=== PATIENT | male | born 1965 | race African-American/Black ===

== ENCOUNTER 2016-09-07 19:51 | Emergency (ER) | payer MEDICAID ==
[~2016-09-07] VITALS: Ht 172.7 cm; Wt 82.0 kg
[~2016-09-07 19:51] MED LIST: METO50TA PO
[2016-09-07 19:53] VITALS: BP 204/112; PULSE 107; RESP 18; TEMP 98.3; O2SAT 97
--- NOTE | 2016-09-07 20:44 | PD ---
HPI Chief Complaint: Abdominal Pain Time Seen by Provider: 20:23 Travel History International Travel<30 days: No Contact w/Intl Traveler<30days: No Traveled to known affect area: No History of Present Illness HPI 51-year-old man who presents to the emergency department complaining of right groin pain. States that this started 3 days ago. He states when his young he notices a small nodule in his groin its been there ever since. He's never really had trouble with it. States over the past 3 days has gotten very painful for him. He is worsening pain whenever he tries to move his leg or stand or walk. He has not noticed anything else that exacerbates the pain. He denies any injuries heavy lifting or new activities. He otherwise has been feeling generally well and healthy. History Past Medical History Narrative Medical Hypertension Social History Alcohol Use: Yes (occasional ) Tobacco Use: No Allergies-Medications (Allergen,Severity, Reaction): Coded Allergies: BLANCA Inhibitors (Verified Allergy, Severe, 09/07/16) Reported Meds & Prescriptions Reported Meds & Active Scripts Active Metoprolol Tartrate 50 Mg Tab 50 Mg PO BID Review of Systems Except as stated in HPI: all other systems reviewed are Neg Physical Exam Narrative GENERAL: Well-appearing 51-year-old man, no acute distress. SKIN: Warm and dry. CARDIOVASCULAR: Regular rate and rhythm. No murmur appreciated. RESPIRATORY: No accessory muscle use. Clear to auscultation. Breath sounds equal bilaterally. GASTROINTESTINAL: Abdomen soft, non-tender, nondistended. Hepatic and splenic margins not palpable. : Normal external male genitalia. There is no palpable hernias. There is no testicular tenderness or masses. In the area that the patient identifies as being tender, its more on the very proximal medial thigh, there is no palpable lumps bumps or swellings. MUSCULOSKELETAL: No obvious deformities. Data Data Last Documented VS Vital Signs Date Time Temp Pulse Resp B/P Pulse Ox O2 Delivery O2 Flow Rate FiO2 09/07/16 21:05 90 17 162/106 97 Room Air 09/07/16 19:53 98.3 Orders Complete Blood Count With Diff (09/07/16 20:23) Basic Metabolic Panel (Bmp) (09/07/16 20:23) Urinalysis - C+S If Indicated (09/07/16 20:23) Iv Access Insert/Monitor (09/07/16 20:23) Ct Abd/Pel W Iv Contrast(Rout) (09/07/16 ) Hepatic Functional Panel (09/07/16 22:41) Iohexol 350 Inj (Omnipaque 350 Inj) (09/08/16 00:26) Sodium Chlor 0.9% 1000 Ml Inj (Ns 1000 M (09/08/16 01:00) Sodium Chlor 0.9% 1000 Ml Inj (Ns 1000 M (09/08/16 01:00) Labs Laboratory Tests Test 09/07/16 09/07/16 09/07/16 20:36 21:50 22:45 White Blood Count 9.1 TH/MM3 Red Blood Count 4.58 MIL/MM3 Hemoglobin 14.0 GM/DL Hematocrit 41.4 % Mean Corpuscular Volume 90.3 FL Mean Corpuscular Hemoglobin 30.6 PG Mean Corpuscular Hemoglobin 33.9 % Concent Red Cell Distribution Width 13.9 % Platelet Count 270 TH/MM3 Mean Platelet Volume 10.4 FL Neutrophils (%) (Auto) 62.2 % Lymphocytes (%) (Auto) 22.1 % Monocytes (%) (Auto) 12.6 % Eosinophils (%) (Auto) 2.2 % Basophils (%) (Auto) 0.9 % Neutrophils # (Auto) 5.7 TH/MM3 Lymphocytes # (Auto) 2.0 TH/MM3 Monocytes # (Auto) 1.2 TH/MM3 Eosinophils # (Auto) 0.2 TH/MM3 Basophils # (Auto) 0.1 TH/MM3 CBC Comment DIFF FINAL Differential Comment Urine Color DARK-YELLOW Urine Turbidity HAZY Urine pH 6.0 Urine Specific [place] 1.026 Urine Protein 100 mg/dL Urine Glucose (UA) NEG mg/dL Urine Ketones 40 mg/dL Urine Occult Blood NEG Urine Nitrite NEG Urine Bilirubin NEG Urine Urobilinogen 4.0 MG/DL Urine Leukocyte Esterase NEG Urine RBC 2 /hpf Urine WBC 4 /hpf Urine Squamous Epithelial 1 /hpf Cells Urine Mucus FEW /lpf Microscopic Urinalysis Comment CULT NOT INDICATED Sodium Level 139 MEQ/L Potassium Level 3.7 MEQ/L Chloride Level 102 MEQ/L Carbon Dioxide Level 28.8 MEQ/L Anion Gap 8 MEQ/L Blood Urea Nitrogen 16 MG/DL Creatinine 1.77 MG/DL Estimat Glomerular Filtration 49 ML/MIN Rate Random Glucose 113 MG/DL Calcium Level 8.9 MG/DL Total Bilirubin 1.7 MG/DL Direct Bilirubin 0.4 MG/DL Indirect Bilirubin 1.3 MG/DL Aspartate Amino Transf 17 U/L (AST/SGOT) Alanine Aminotransferase 24 U/L (ALT/SGPT) Alkaline Phosphatase 61 U/L Total Protein 7.8 GM/DL Albumin 3.9 GM/DL [facility] Medical Decision Making Medical Screen Exam Complete: Yes Emergency Medical Condition: Yes Interpretation(s) LABS: CBC unremarkable. CMP with mildly elevated creatinine, mildly elevated total bilirubin. UA unremarkable. CT abdomen and pelvis: Urinary bladder wall thickening, nonspecific. Degenerative changes in the lumbar spine. Differential Diagnosis Hernia, groin strain, kidney stone, UTI, other Narrative Course Medical decision making INITIAL: A 51-year-old man who presents to the emergency department complaining of groin strain and pain. He says he can feel a lump or bump in his groin. This was suggest a hernia. I can't appreciate any hernia even with examining him was standing. He does state coughing exacerbates the pain but still I can' t feel anything abnormal. He has pain when he flexes his thigh and when he abducts his thigh against resistance. I think that he probably has a groin muscle strain. We'll check labs, and imaging to make sure not missing something unusual like an incarcerated femoral hernia. Otherwise will discharge with anti-inflammatory medicines. Diagnosis Primary Impression: Groin strain Qualified Code: S76.211A - Groin strain, right, initial encounter Additional Instructions: Use Tylenol or ibuprofen as needed for pain. Follow Up with your primary doctor in the next 2-3 days. Return to the emergency department for any new or worsening symptoms. Med/Other Pt SpecificInfo: Prescription(s) given Disposition: 01 DISCHARGE HOME Condition: Stable Cresencio Goff MD Sep 07, 2016 20:44
[2016-09-07 21:05] VITALS: BP 162/106; PULSE 90; RESP 17; O2SAT 97
[2016-09-07 21:18] LABS: AUTOMATED NEUTROPHIL # 5.7 TH/MM3 (1.8-7.7); BASOPHIL # 0.1 TH/MM3 (0-0.2); BASOPHIL % 0.9 % (0.0-2.0); EOSINOPHIL # 0.2 TH/MM3 (0-0.4); EOSINOPHIL % 2.2 % (0.0-4.0); HEMATOCRIT 41.4 % (39.0-51.0); HEMO FLAGS DIFF FINAL; LYMPH % 22.1 % (9.0-44.0); MEAN CELL VOLUME 90.3 FL (80.0-100.0); MEAN CORPUSCULAR HEMOGLOBIN 30.6 PG (27.0-34.0); MEAN CORPUSCULAR HGB CONC 33.9 % (32.0-36.0); MONO % 12.6 % (0.0-8.0); NEUT % 62.2 % (16.0-70.0); PLATELET COUNT 270 TH/MM3 (150-450); RED BLOOD COUNT 4.58 MIL/MM3 (4.50-5.90); RED CELL DISTRIBUTION WIDTH 13.9 % (11.6-17.2); WHITE BLOOD COUNT 9.1 TH/MM3 (4.0-11.0)
[2016-09-07 22:13] LABS: BLOOD, URINE NEG (NEG); COMMENT (UR) CULT NOT INDICATED; CULTURE IF INDICATED CULT NOT INDICATED; GLUCOSE,URINE NEG (NEG); KETONE, URINE 40 mg/dL (NEG); MUCUS URINE FEW /lpf (OCC); NITRITE,URINE NEG (NEG); SQUAMOUS EPITHELIAL CELL URINE 1 /hpf (0-5); URINE COLOR DARK-YELLOW (YELLW/STRAW)
[2016-09-07 23:16] LABS: INDIRECT BILIRUBIN 1.3 MG/DL (0.0-0.8); TOTAL BILIRUBIN ADULT 1.7 MG/DL (0.2-1.0)
[2016-09-07 23:27] LABS: BICARBONATE 28.8 MEQ/L (21.0-32.0); POTASSIUM 3.7 MEQ/L (3.5-5.1)
[2016-09-08] MEDS ORDERED: IOHEXOL 350 MG/ML 10 ML VIAL (for RAD DIAG) IV ONE (00:26)
[2016-09-08] MEDS ORDERED: SODIUM CHLOR 0.9% 1000 ML INJ 1,000 ML IV ONE ×2 (01:00)
--- NOTE | 2016-09-08 01:22 | RADRPT ---
EXAM DATE/TIME: 09/08/2016 00:22 [place] COMPARISON: No previous studies available for comparison. INDICATIONS : Lower abdomen and groin pain X 3 days IV CONTRAST: 95 cc Omnipaque 350 (iohexol) IV ORAL CONTRAST: No oral contrast ingested. RADIATION DOSE: 14.25 CTDIvol (mGy) MEDICAL HISTORY : Hypertension. Cardiovascular disease SURGICAL HISTORY : None. ENCOUNTER: Initial ACUITY: 3 days PAIN SCALE: 7/10 LOCATION: abdomen TECHNIQUE: Volumetric scanning of the abdomen and pelvis was performed. Using automated exposure control and ad justment of the mA and/or kV according to patient size, radiation dose was kept as low as reasonably achievable to obtain optimal diagnostic quality images. FINDINGS: LOWER LUNGS: Mild atelectasis left lung base. LIVER: 8mm round hypodensity in the central right lobe of the liver likely representing a cyst or hemangioma . Liver otherwise homogeneous and within normal limits. Gallbladder within normal limits. SPLEEN: Normal size without lesion. PANCREAS: Within normal limits. KIDNEYS: Normal in size and shape. There is no mass, stone or hydronephrosis. ADRENAL GLANDS: Within normal limits. VASCULAR: There is no aortic aneurysm. BOWEL/MESENTERY: No evidence of bowel dilatation. No free air or free fluid. Appendix within normal limits. ABDOMINAL WALL: Within normal limits. RETROPERITONEUM: There is no lymphadenopathy. BLADDER: Diffuse nonspecific urinary bladder wall thickening. REPRODUCTIVE: Prostate calcifications. INGUINAL: There is no lymphadenopathy or hernia. MUSCULOSKELETAL: Moderate severity facet arthrosis lower lumbar spine. CONCLUSION: 1. Diffuse urinary bladder wall thickening, nonspecific. 2. Lumbar spine degenerative findings. Jean-Paul Warren MD on September 08, 2016 at 1:11 Board Certified Radiologist. This report was verified electronically.
[2016-09-08] MEDS ORDERED: METO50TA PO (01:47)
[2016-09-08] MEDS ORDERED: NAPR500 PO (01:47)
[2016-09-08 02:26] VITALS: BP 150/87
== END 2016-09-08 01:55 | disposition home or self-care (01) ==
LOC: NEPE 19:51
DX: S39.011A Strain of muscle, fascia and tendon of abdomen, initial encounter (principal); I10 Essential (primary) hypertension; X58.XXXA Exposure to other specified factors, initial encounter
CPT/HCPCS: 74177; 80048; 80076; 81001; 85025; 99284; J7030; Q9967

== ENCOUNTER 2018-05-08 10:19 | Observation (INO) ==
[2018-05-08] MEDS ORDERED: Morphine Inj 4 MG/ML Vial IV.PUSH ONE (11:36)
[2018-05-08] MEDS ORDERED: Aspirin 325 MG Tablet PO ONE (11:36)
[2018-05-08 12:08] LABS: Baso # (Auto) 0.1 th/mm3 (0.0-0.2); Baso % (Auto) 0.9 % (0.0-2.0); Eos # (Auto) 0.5 th/mm3 (0.0-0.4); Eos % (Auto) 5.4 % (0.0-4.0); Hematocrit 42.7 % (39.0-51.0); Hemoglobin 14.6 gm/dL (13.0-17.0); Lymph # (Auto) 2.1 th/mm3 (1.0-4.8); Lymph % (Auto) 23.9 % (9.0-44.0); Mean Corpuscular HGB Conc 34.3 % (32.0-36.0); Mean Corpuscular Hemoglobin 31.2 pg (27.0-34.0); Mean Corpuscular Volume 91.1 fL (80.0-100.0); Mean Platelet Volume 8.5 fL (7.0-11.0); Mono # (Auto) 1.1 th/mm3 (0.0-0.9); Mono % (Auto) 12.1 % (0.0-8.0); Neut # (Auto) 5.2 th/mm3 (1.8-7.7); Neut % (Auto) 57.7 % (16.0-70.0); Platelet Count 264 th/mm3 (150-450); Red Blood Count 4.69 mil/mm3 (4.50-5.90); Red Cell Distribution Width 13.2 % (11.6-17.2)
--- NOTE | 2018-05-08 12:10 | XR ---
EXAM DATE: 05/08/2018 12:04 PM EST AGE/SEX: 52 years / Male INDICATIONS: Chest pain. CLINICAL DATA: This is the patient's initial encounter. Patient reports that signs and symptoms have been present for 1 day and indicates a pain score of 5/10. MEDICAL/SURGICAL HISTORY: None. None. COMPARISON: No prior exams available for comparison. FINDINGS: A single AP view of the chest demonstrates the lungs to be symmetrically aerated without evidence of mass, infiltrate or effusion. The cardiomediastinal contours are unremarkable. Osseous structures a re intact. CONCLUSION: Negative examination. Electronically signed by: Kiran Virk MD 05/08/2018 12:09 PM EST
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
[2018-05-08 12:34] LABS: Alkaline Phosphatase 61 U/L (45-117); Creatine Kinase 106 U/L (39-308); Total Protein 7.8 g/dL (6.4-8.2)
[2018-05-08 12:35] LABS: Alanine Aminotransferase 33 U/L (12-78); Albumin 3.8 g/dL (3.4-5.0); Anion Gap 9 meq/L (5-15); Aspartate Aminotransferase 20 U/L (15-37); Blood Urea Nitrogen 23 mg/dL (7-18); Calcium 9.2 mg/dL (8.5-10.1); Carbon Dioxide 28.5 meq/L (21.0-32.0); Chloride 102 meq/L (98-107); Glomerular Filtration Rate 56 mL/min (>89); Glucose,Random 84 mg/dL (74-106); Lipase 159 U/L (73-393); Potassium 4.1 meq/L (3.5-5.1); Sodium 139 meq/L (136-145)
[2018-05-08] MEDS ORDERED: Sod Chloride 0.9% Inj 1,000 ML IV.SIG SCH (13:15)
--- NOTE | 2018-05-08 14:18 | ECG ---
Date Performed: 05/08/2018 Time Performed: 12:06:16 PTAGE: 52 years EKG: Sinus rhythm Nonspecific T wave changes ABNORMAL ECG Compared to prior electrocardiogram, T-wave changes are slig htly more prominent. PREVIOUS TRACING : 03/23/2018 22.29 DOCTOR: Hector Ashby Interpretating Date/Time 05/08/2018 14:16:59
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
[2018-05-08] MEDS ORDERED: Morphine Inj 4 MG/ML Vial IV.PUSH PRN (17:41)
[2018-05-08] MEDS ORDERED: Acetaminophen 500 MG Tablet PO PRN (17:41)
[2018-05-08] MEDS ORDERED: Iohexol 350 MG/ML 100 ML Vial (for Cath Lab) IVCONTRAST ONE (17:49)
[2018-05-08 19:54] LABS: Creatine Kinase 80 U/L (39-308)
--- NOTE | 2018-05-08 21:12 | ECG ---
Date Performed: 05/08/2018 Time Performed: 17:56:05 PTAGE: 52 years EKG: Sinus rhythm Nonspecific T wave changes ABNORMAL ECG No significant change from prior electrocardiogram. PREVIOUS TRACING : 05/08/2018 12.06 DOCTOR: Hector Ashby Interpretating Date/Time 05/08/2018 21:11:26
[2018-05-08 22:35] LABS: Creatine Kinase 61 U/L (39-308)
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
--- NOTE | 2018-05-09 11:42 | ECG ---
Date Performed: 05/08/2018 Time Performed: 21:46:47 PTAGE: 52 years EKG: Sinus rhythm MODERATE T-WAVE ABNORMALITY, CONSIDER LATERAL ISCHEMIA ABNORMAL ECG PREVIOUS TRACING : 05/08/2018 17.56 Since previous tracing, no significant change noted DOCTOR: Pradeep Rose Interpretating Date/Time 05/09/2018 11:41:59
[2018-05-09] MEDS: amLODIPine 10 MG Tablet PO SCH (18:42)
[2018-05-09] MEDS: Metoprolol Tartrate 50 MG Tablet PO SCH ×2 (18:42→21:25)
[2018-05-09] MEDS: Aspirin 325 MG Tablet PO SCH (18:43)
[2018-05-10] MEDS ORDERED: Regadenoson Inj 0.4 MG/5 ML Syringe IV.PUSH ONE (08:38)
--- NOTE | 2018-05-10 09:53 | NM ---
EXAM DATE: 05/10/2018 9:41 AM EST AGE/SEX: 52 years / Male INDICATIONS:Angina. . Left sided chest pain for one day. CLINICAL DATA: This is the patient's initial encounter. Patient reports that signs and symptoms have been present for 2 days and indicates a pain score of 3/10. MEDICAL/SURGICAL HISTORY: Hypertension. None. COMPARISON: No prior exams available for comparison. No external comparison. DOSE: 8.7 mCi Tc 99m Myoview at rest 29.1 mCi [id number] at stress 0.4 mg Lexiscan STRESS SYMPTOMS: Shortness of breath with nausea. EJECTION FRACTION: 33 % TECHNIQUE: The patient underwent pharmacologic stress with infusion of prescribed dose. Continuous ECG tracing was monitored during stress. Gated SPECT imaging was performed after stress and conventi onal SPECT imaging was performed at rest. The examination was performed on a SPECT/CT scanner, both attenuation and non-corrected datasets were reviewed. FINDINGS: The best perfused myocardium is the septum followed by the inferior wall. There is redistribution in the anterior myocardium beginning in mid myocardium extending to the apex consistent with stress-satya amado ischemia. Gated Study: There is mild global hypokinesis worse in the lateral inferior wall. The lateral and i nferior wall are somewhat dyskinetic as well. . The ejection fraction is calculated at 33%. RISK CATEGORY: Intermediate (1-3 % Annual Mortality Rate) CONCLUSION: 1. Stress-induced ischemia anterior myocardium as above. Electronically signed by: Tony Sherman MD 05/10/2018 9:51 AM EST
[2018-05-10] MEDS: Metoprolol Tartrate 50 MG Tablet PO SCH ×2 (09:57→20:39)
[2018-05-10] MEDS: Aspirin 325 MG Tablet PO SCH (09:57)
[2018-05-10] MEDS: amLODIPine 10 MG Tablet PO SCH (09:58)
--- NOTE | 2018-05-10 10:46 | P.PNCA ---
Subjective Interval history: No complaints overnight. Completed stress portion of Lexiscan this morning. Medications and Allergies Active Medications: Active Medications Acetaminophen (Tylenol) 500 mg PO Q4H PRN PRN Reason: HEADACHE Hydrocodone Bitart/Acetaminophen ([place] 7.5/325) 1 tab PO Q4H PRN PRN Reason: PAIN SCALE 1 TO 7 Last Admin: 05/10/18 06:54 Dose: 1 tab Amlodipine Besylate (Norvasc) 10 mg PO DAILY [facility] Last Admin: 05/10/18 09:58 Dose: 10 mg Aspirin (Aspirin) 325 mg PO DAILY [facility] Last Admin: 05/10/18 09:57 Dose: 325 mg Clonidine HCl (Catapres) 0.1 mg PO Q6H PRN PRN Reason: SBP >165 OR DBP > 110 Losartan Potassium (Cozaar) 100 mg PO DAILY [facility] Last Admin: 05/10/18 09:58 Dose: 100 mg Metoprolol Tartrate (Lopressor) 50 mg PO BID [facility] Last Admin: 05/10/18 09:57 Dose: 50 mg Morphine Sulfate (Morphine Inj) 2 mg IV.PUSH Q4H PRN PRN Reason: PAIN SCALE 8 TO 10 Ondansetron HCl (Zofran Inj) 4 mg IV.PUSH Q6H PRN PRN Reason: NAUSEA Pantoprazole Sodium (Protonix) 40 mg PO DAILY [facility] Last Admin: 05/10/18 09:57 Dose: 40 mg Sodium Chloride (Ns Flush) 2 ml IV.FLUSH BID [facility] Last Admin: 05/10/18 09:59 Dose: 2 ml Sodium Chloride (Ns Flush) 2 ml IV.FLUSH PRN PRN PRN Reason: FLUSH AFTER USING IV ACCESS Allergies Allergy/AdvReac Type Severity Reaction Status Date / Time benazepril Allergy Severe Rash Verified 05/08/18 11:21 captopril Allergy Severe Rash Verified 05/08/18 11:21 enalaprilat Allergy Severe Rash Verified 05/08/18 11:21 fosinopril Allergy Severe Rash Verified 05/08/18 11:21 lisinopril Allergy Severe Rash Verified 05/08/18 11:21 quinapril Allergy Severe Rash Verified 05/08/18 11:21 Home Medications Medication Instructions Recorded Confirmed Type amlodipine 10 mg PO DAILY 05/08/18 05/08/18 History hydrocodone-acetaminophen 1 tab PO Q6H PRN 05/08/18 05/08/18 History losartan 100 mg PO DAILY 05/08/18 05/08/18 History metoprolol tartrate 50 mg PO BID 05/08/18 05/08/18 History Physical Exam Vital signs: Vital Signs 05/09/18 12:00 05/09/18 16:00 05/09/18 20:00 Temperature 98.2 F 98.3 F 98.0 F Pulse Rate 84 91 H 72 Respiratory Rate Blood Pressure 126/80 161/95 H 149/91 H Pulse Oximetry 96 100 96 05/10/18 00:00 05/10/18 03:46 05/10/18 08:00 Temperature 98.4 F 97.9 F Pulse Rate 70 65 Respiratory Rate Blood Pressure 161/100 H 149/92 H Pulse Oximetry 96 96 Intake & Output 05/09/18 05/10/18 05/10/18 18:59 06:59 18:59 Intake Total 480 / 480 30 / 30 Output Total 600 / 600 850 / 850 Balance -120 / -120 -820 / -820 Intake: Oral 480 / 480 30 / 30 Output: Urine 600 / 600 850 / 850 Other: # Voids 5 Date of Last Bowel Movement 05/07/18 05/07/18 Results 05/08/18 11:56 05/08/18 11:56 Cardiac Enzymes 05/08/18 05/08/18 05/08/18 Range/Units 11:56 18:45 21:40 AST 20 (15-37) U/L CK-MB (CK-2) Less than 1.0 (0.5-3.6) ng/mL Troponin I Less than 0.02 L Less than 0.02 L Less than 0.02 L (0.02-0.05) ng/mL CBC 05/08/18 Range/Units 11:56 WBC 9.0 (4.0-11.0) th/mm3 RBC 4.69 (4.50-5.90) mil/mm3 Hgb 14.6 (13.0-17.0) gm/dL Hct 42.7 (39.0-51.0) % Plt Count 264 (150-450) th/mm3 Neut # (Auto) 5.2 (1.8-7.7) th/mm3 Lymph # (Auto) 2.1 (1.0-4.8) th/mm3 [place] # (Auto) 1.1 H (0.0-0.9) th/mm3 Eos # (Auto) 0.5 H (0.0-0.4) th/mm3 Baso # (Auto) 0.1 (0.0-0.2) th/mm3 Comprehensive Metabolic Panel 05/08/18 Range/Units 11:56 Sodium 139 (136-145) meq/L Potassium 4.1 (3.5-5.1) meq/L Chloride 102 (98-107) meq/L Carbon Dioxide 28.5 (21.0-32.0) meq/L BUN 23 H (7-18) mg/dL Creatinine 1.56 H (0.60-1.30) mg/dL Calcium 9.2 (8.5-10.1) mg/dL AST 20 (15-37) U/L ALT 33 (12-78) U/L Alkaline Phosphatase 61 (45-117) U/L Total Protein 7.8 (6.4-8.2) g/dL Albumin 3.8 (3.4-5.0) g/dL Intake and Output 05/09/18 05/10/18 05/10/18 22:59 06:59 14:59 Intake Total 480 / 480 30 / 30 Output Total 600 / 600 850 / 850 Balance -120 / -120 -820 / -820 Intake: Oral 480 / 480 30 / 30 Output: Urine 600 / 600 850 / 850 Other: # Voids 5 Date of Last Bowel Movement 05/07/18 - Imaging and Cardiology Imaging: Impressions Chest X-Ray 05/08/18 11:36 CONCLUSION: Negative examination. Chest CTA 05/08/18 12:09 CONCLUSION: 1. No pulmonary embolus. 2. Mild atelectasis of. No pneumonia, effusion or pneumothorax. 3. Coronary artery calcification. Myocardial Perfusion Scan Nuc Med 05/09/18 12:40 CONCLUSION: 1. Stress-induced ischemia anterior myocardium as above. Assessment and Plan - Assessment (1) Chest pain Code(s): R07.9 - Chest pain, unspecified Status: Acute Plan: Admitted to chest pain center. Completed stress portion of Lexiscan this morning. Results conclusion stress induced ischemia. Discussed results with patient, made aware of cardiac consult. Patient agreeable to speaking with care attendant, however unsure if he would consent for a cardiac catheterization. Time for questions and concerns provided time approximately 15 minutes. Patient and both visitors instructed he is to remain nothing by mouth until seen by care attendant. (2) Hypertension Code(s): I10 - Essential (primary) hypertension Status: Acute Plan: Continue to monitor. Home blood pressure medications previously resumed. - Plan * Chest pain: Patient has had serial cardiac enzymes and EKGs for ruling out purposes. He will be seen by Dr. Rose of cardiology in the chest pain center. We are awaiting records from [facility] in [place] to confirm the abnormal stress test. If so, will likely need admission with consult to cardiology. * Hypertension: Continue medication. Patient is stable at this time. He is agreeable to this plan.
[2018-05-10] MEDS ORDERED: Sod Chloride 0.9% Inj 1,000 ML IV.SIG ONE (12:35)
[2018-05-10] MEDS ORDERED: Sod Chloride 0.9% Inj 1,000 ML IV.SIG SCH (14:20)
[2018-05-10] MEDS ORDERED: fentaNYL Citrate Inj 100 MCG/2 ML Ampul ONE (14:25)
[2018-05-10] MEDS ORDERED: Heparin/NS PF Inj 1,500 ML ONE (14:25)
[2018-05-10] MEDS ORDERED: Lidocaine PF 1% Inj 30 ML Vial ONE (14:25)
[2018-05-10] MEDS ORDERED: Heparin 10,000 UNITS/10 ML Vial (for IV use) ONE (14:25)
[2018-05-10] MEDS ORDERED: Midazolam Inj 5 MG/ML 1 ML Vial IV.PUSH ONE ×3 (14:32→15:04)
[2018-05-10] MEDS ORDERED: fentaNYL Citrate Inj 100 MCG/2 ML Ampul IV.PUSH ONE (14:33)
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
--- NOTE | 2018-05-10 15:42 | CATHPROC ---
[facility] HIS Report Study Information Study Number Admission Scheduled Start Study Start [id number] May 08 2018 5:48PM 05/10/2018 May 10 2018 1:56PM [place] Service Cardiac Catheterization Admit Source Facility Department Emergency department [facility] Physician and Clinical Staff Initial Gary [place] City Manager Kaya Page,GEMA City Manager Danitza Ruff RN Recorder Nguyen Fontana RCIS Scrub Hosterman, William,RT(R) Procedures Performed Procedure Location (Site) Vessel Name Angiogram LV LV Ventricle Coronary Angiograms LCA Left Coronary Coronary Angiograms RCA Right Coronary L Heart Cath Wire insertion Fem Art (right) Femoral Art Equipment Time Regional Director Of Finance Description Size Mfg Part Number Used/Scraped TRANSDUCER, TRUWAVE [id number] 14:19 [employer] * Used W/STOCKCOCK *[id number] 15:22 [employer] VASCADE, FR5 CLOSURE SYSTEM FR 5 Used *[id number] *[id number] [id number] *[id number] 14:19 [employer] BLANKET,WARM AIR CCL * Used *[id number] 14:19 [employer] PACK, CCL CUSTOM * Used *[id number] 14:19 [employer] PACER PEN, SKIN DUAL W/ RULER * Used *[id number] PIG ANG 145 DXTERITY [id number] 14:42 MEDTRONIC FR 5 Used CATHETER *[id number] 14:19 Chem[employer]Q MEDICAL WIRE, 3MMJ .035 180CM 180CM Used *[id number] PROBE COVER, STERILE [id number] 14:19 [employer]only * Used ULTRASOUND W/ GEL *[id number] 14:19 NAMIC MANIFOLD, 4 PORT * Used *[id number] 14:19 NAMIC TUBING, HIGH PRESSURE 48" 48" Used *[id number] 14:19 [employer]COMED OMNIPAQUE, 350 MG, 150ML 150ML [id number] Used [id number] 14:19 TERUMO MEDICAL SHEATH, FR5 TERUMO (10CM) FR 5 Used *[id number] Equipment Model, Serial, Lot Number and Expiration Data Description Model Number Serial Number Lot Number Expiration Date PIG ANG 145 DXTERITY CATHETER [id number] 10-22-2019 History: Allergies Allergy Reaction captopril Rash lisinopril Rash benazepril Rash quinapril Rash fosinopril Rash enalaprilat Rash History: Risk Factors Family History of Hypertension Dyslipidemia Previous [place] Previous Heart Failure Premature CAD Yes No No No No Prior Valve Prior PCI Prior CABG Surgery No No No Cerebrovascular Peripheral Artery Chronic Lung On Dialysis Diabetes Disease Disease Disease No No No No No History: Stress Tests Stress or Imaging Studies Performed Yes Standard Exercise Stress Test No Stress Echo No Stress Test SPECT Stress Test SPECT Result Stress Test SPECT Ischemia Risk/Extent Yes Positive Intermediate Stress Test CMR No Cardiac CTA Coronary Calcium Score No No History: Other Current Smoker No Labs Hgb (g/dl) Hct (%) WBC (l/cumm) Platelets (thousands) 11.60-17.00 35.00-51.00 4.00-11.00 150.00-450.00 14.6 42.7 9 264 Glucose (mg/dl) BUN (mg/dl) Creatinine (mg/dl) BUN:Creatinine (1:x) 74.00-106.00 7.00-18.00 0.50-1.30 10.00-20.00 84 23 1.5 15.3 Na (meq/l) K (meq/l) 136.00-145.00 3.50-5.10 139 41 CPK-MB (ng/ML) 0.50-3.60 Not Drawn Medication Medication Total Dose (Bolus/Oral) Medication Total Dosage/Unit 1% XYLOCAINE 20 mL FENTANYL 50 mcg VERSED 4 mg Medications (Bolus/Oral) Medication Time Given Dosage/Unit Administered By Reason VERSED 05/10/2018 2:32:48 PM 2 mg Danitza Ruff 2 mg VERSED given in lab by Danitza Ruff, GEMA via Peripheral IV. Ordered by Gary Joinre. FENTANYL 05/10/2018 2:33:42 PM 50 mcg Danitza Ruff 50 mcg FENTANYL given by Danitza Ruff, GEMA via Peripheral IV. Ordered by Gary Joiner. 1% XYLOCAINE 05/10/2018 2:42:51 PM 20 mL William Carroll 20 mL 1% XYLOCAINE given in lab by William Carroll, RT(R) via Subcutaneous. Ordered by Garth Joiner VERSED 05/10/2018 2:43:28 PM 1 mg Danitza Ruff 1 mg VERSED given in lab by Danitza Ruff GEMA via Peripheral IV. Ordered by Gary Joiner. VERSED 05/10/2018 3:04:52 PM 1 mg Danitza Ruff 1 mg VERSED given in lab by Danitza Ruff, GEMA via Peripheral IV. Ordered by Gary Joiner. Medication (Drip) Medication Time Given Dosage/Unit Concentration/Unit Diluent (ml) Solution IV Solutions 05/10/2018 2:24:16 PM 50 mL (IV) 1000 NaCl .9 Patient arrived on IV Solutions via Peripheral IV. Pump/Drip Flow using NaCl .9. Initial Case Assessment Cardiovascular HR NIBP Chest Pain 57 164/104 0 Edema Present Skin color Skin None Normal Warm Dry Circulatory - Right Pulses Dorsalis Pedis Femoral 2 2 Scale (0,1,2,3,4,d) Circulatory - Left Pulses Dorsalis Pedis Femoral 2 2 Scale (0,1,2,3,4,d) Neurological State Oriented to time-place- Alert Moves all extremities person Respiration - General Respiration Rate SpO2 (%) (B/min) 20 97 Chronological Log Time Study Chronological Log 14:19:10 Patient arrived via Bed. 14:19:11 Patient Name, D.O.B, / Armband Verified By R.N. 14:22:49 Consent signed by the physician and the patient and verified by the [facility] staff. 14:22:59 Patient has been NPO for More than 6Hrs. 14:23:07 Skin Breakdown- none Vitals capture started with the following parameters, Patient=Adult, Interval=5 min, Initial Pr davujg=435 mmHg, 14:23:22 Deflation Rate=5 mmHg, Cuff placed on Left Arm 14:23:54 A # 20 IV was noted in the Antecubital (left). Grade = 0 14:24:16 Patient arrived on IV Solutions via Peripheral IV. Pump/Drip Flow using NaCl .9. 14:24:44 HR=59 bpm, FWQM=887/109 mmhg, SpO2=97.0 %, Resp=15 B/min, Pain=0, Nelly=10, Mathews=2 14:28:22 History and physical on the chart or being dictated. Assessment: Initial Case, HR=57 BPM, ADUB=530/104 mmhg, Chest Pain=0, Edema=None, Color=Normal, Skin = Warm, Dry Right Pulses: Magan Ped=2, Femoral=2 14:28:54 Left Pulses: Magan Ped=2, Femoral=2 Neurological: State=Alert, Ox3, DE LA ROSA Respiration: Resp=20 B/min, SpO2=97 % 14:29:04 HR=56 bpm, PNWK=891/104 mmhg, SpO2=98.0 %, Resp=12 B/min, Pain=0, Nelly=10, Mathews=2 14:29:49 Right groin prepped with 2% chlorhexidine, and draped after a 3 min. waiting time. 14:32:48 2 mg VERSED given in lab by Danitza Ruff, GEMA via Peripheral IV. Ordered by Clair Joiner 14:33:42 50 mcg FENTANYL given by Danitza Ruff, GEMA via Peripheral IV. Ordered by Gary Joiner. 14:34:05 HR=59 bpm, HIGM=795/104 mmhg, SpO2=98.0 %, Resp=13 B/min, Pain=0, Nelly=10, Mathews=2 14:37:34 Pressure channel 2 zeroed. 14:39:08 HR=69 bpm, ZIPV=821/84 mmhg, SpO2=95.0 %, Resp=7 B/min, Pain=0, Nelly=10, Mathews=2 14:40:31 MD notified , lab ready 14:40:58 Reference ECG taken 14:42:51 20 mL 1% XYLOCAINE given in lab by William Carroll RT(R) via Subcutaneous. Ordered by Gary Christine. 14:43:28 1 mg VERSED given in lab by Danitza Ruff, GEMA via Peripheral IV. Ordered by Clair Joiner 14:43:59 HR=61 bpm, YMSG=801/84 mmhg, SpO2=97.0 %, Resp=10 B/min, Pain=0, Nelly=10, Mathews=2 14:49:00 HR=61 bpm, KHDG=895/86 mmhg, SpO2=96.0 %, Resp=8 B/min, Pain=0, Nelly=10, Mathews=2 14:54:03 HR=61 bpm, GUTO=076/78 mmhg, SpO2=97.0 %, Resp=7 B/min, Pain=0, Nelly=10, Mathews=2 14:59:00 HR=62 bpm, PYRP=839/77 mmhg, SpO2=97.0 %, Resp=8 B/min, Pain=0, Nelly=10, Mathews=2 15:03:14 MD arrived. 15:03:59 HR=64 bpm, FHEE=210/79 mmhg, SpO2=97.0 %, Resp=9 B/min, Pain=0, Nelly=10, Mahtews=2 Time Out. Correct patient, correct procedure, correct physician, labs, allergies, and equipment verified with high density press laborer 15:04:25 team present. Fire risk assesment completed (see hard stop sheet for coding). Time Out Conc urred by MD and individual staff in procedure. 15:04:33 Case Start 15:04:52 1 mg VERSED given in lab by Danitza Ruff RN via Peripheral IV. Ordered by Clair Joiner. 15:06:55 Access site was Right Femoral Artery. 15:08:07 A SHEATH, FR5 TERUMO (10CM) FR 5 was advanced into the Fem Art (right) using the Percutaneo us technique. A PIG ANG 145 DXTERITY CATHETER FR 5 was advanced over a wire. OMNIPAQUE, 350 MG, 150ML 150ML w as used 15:08:35 for injections. 15:08:50 A WIRE, 3MMJ .035 180CM 180CM was inserted via Fem Art (right). 15:09:00 Wire removed 15:09:37 HR=66 bpm, RSID=991/89 mmhg, SpO2=98.0 %, Resp=8 B/min, Pain=0, Nelly=10, Mathews=2 Recorded Pressure: LV, HR=66, Condition=Condition 1 15:09:39 (Left Ventricle) LV 130/5/12 15:10:43 The LV was injected at 10 cc/sec for a total of 30. OMNIPAQUE, 350 MG, 150ML 150ML used. Recorded Pressure: LV, Ao, HR=66, Condition=Condition 1 15:11:29 (Left Ventricle) LV 126/0/11, (Aorta) Ao 138/85/109 After removing the current catheter a JL 4.0 INFINITI CATHETER FR 5 was advanced over a WIRE, 3MMJ .035 180CM 15:11:56 180CM. 15:13:02 The LCA was injected and visualized at various angles. OMNIPAQUE, 350 MG, 150ML 150ML use d. 15:14:01 HR=64 bpm, ZKOA=347/84 mmhg, SpO2=96.0 %, Resp=9 B/min, Pain=0, Nelly=10, Mathews=2 After removing the current catheter a AR MOD INFINITI CATHETER FR 5 was advanced over a WIRE, 3MMJ .035 180CM 15:15:55 180CM. 15:17:27 The RCA was injected and visualized at various angles. OMNIPAQUE, 350 MG, 150ML 150ML use d. 15:18:10 Catheter(s) removed without difficulty 15:18:40 Case End (Physician broke scrub) 15:19:04 HR=66 bpm, CTJB=305/79 mmhg, SpO2=97.0 %, Resp=8 B/min, Pain=0, Nelly=10, Mathews=2 15:19:22 ACT (Normal Range 90-180) = 116 15:24:07 HR=65 bpm, XZMX=117/74 mmhg, SpO2=97.0 %, Resp=10 B/min, Pain=0, Nelly=10, Mathews=2 15:25:20 Sheath removed 15:25:50 VASCADE, FR5 CLOSURE SYSTEM FR 5 placement in the Fem Art (right) 15:26:10 Sterile dressing applied to site 15:26:13 No case complications noted. 15:26:23 A Left Heart Cath was performed. 15:29:02 HR=62 bpm, KFVC=027/97 mmhg, SpO2=99.0 %, Resp=9 B/min, Pain=0, Nelly=10, Mathews=2 15:34:38 [facility] End Study - Maximum Contrast Load Max Contrast Load (mL) 249.4 End Study - Radiation Exposure Fluoro Time (minutes) 2.8 End Study - Patient Disposition Complications Transferred To No [facility]
--- NOTE | 2018-05-10 16:29 | MR ---
cc: Gary Joiner MD DATE: 05/10/2018 PROCEDURE PERFORMED: 1. Retrograde left heart catheterization with left ventriculography and selective coronary angiography. 2. Moderate sedation. ACCESS SITE: Right femoral artery. EQUIPMENT USED: A 5-Bulgarian pigtail catheter, 5-Bulgarian JL4 and AR modified coronary catheters. INDICATION: Unstable angina, class 3 angina, intermediate probability nuclear myocardial perfusion study. MEDICATIONS: Versed IV, fentanyl IV. CONTRAST: Omnipaque 70 mL. COMPLICATIONS: None. ESTIMATED BLOOD LOSS: Less than 10 mL. METHOD OF HEMOSTASIS: Vascade closure. RESULTS: A. Hemodynamics: Heart rate 70 beats per minute. Left ventricular end-diastolic pressure 10 mmHg. Left ventricle 130/10. Aorta 130/80/109. B. Left ventricular ejection fraction 50%. Wall motion normal. No mitral regurgitation. C. Coronary angiography: Left main coronary patent. Left anterior descending artery has 50% stenosis in the proximal - mid portion. D1 patent. Ramus intermedius patent. Left circumflex artery patent. It is a dominant vessel. OM1 patent. OM2 patent. OM3 patent. Left PDA patent. Right coronary artery is a small vessel, which is patent. DIAGNOSES: 1. Moderate coronary artery disease with 50% stenosis of proximal - mid left anterior descending artery. 2. Borderline normal left ventricular systolic function. DISPOSITION: The patient will be monitored on telemetry after his procedure. We will continue vigorous hydration and monitor his renal function. He will be discharged home tomorrow if stable. We will continue and titrate therapy for angina and aggressive modification of his cardiac risk factors. MD JAZMIN Perera/neil , 03:39 PM , 03:47 PM LEA
[2018-05-10] MEDS: Sod Chloride 0.9% Inj 1,000 ML IV.CONT SCH (17:36)
[2018-05-10] MEDS: Isosorbide Mononitrate 30 MG ER 24HR Tablet (Imdur) PO SCH (18:37)
[2018-05-11] MEDS: Sod Chloride 0.9% Inj 1,000 ML IV.CONT SCH (02:06)
[2018-05-11 05:42] LABS: Calcium 8.1 mg/dL (8.5-10.1); Carbon Dioxide 27.1 meq/L (21.0-32.0); Chol/HDL Ratio 3.2 Ratio; HDL Cholesterol 39.6 mg/dL (40.0-60.0); Potassium 4.2 meq/L (3.5-5.1)
[2018-05-11] MEDS: Isosorbide Mononitrate 30 MG ER 24HR Tablet (Imdur) PO SCH (06:08)
[2018-05-11] MEDS ORDERED: Isosorbide Mononitrate 30 MG ER 24HR Tablet (Imdur) PO SCH (07:00)
--- NOTE | 2018-05-11 07:21 | TR ---
Date Performed: 05/10/2018 Time Performed: 08:32:57 DOCTOR: Ange Dalton DRUG LIST: CLINICAL HISTORY: REASON FOR TEST: REASON FOR ENDING: OBSERVATION: CONCLUSION: Lexiscan stress test was performed under standard four minute protocol. Radionuclid e was injected one minute prior to ending the test. No electrocardiographic abormalities were present to suggest ischemia. Nuclear imaging and interpretation are pending. COMMENTS: Lexiscan stress test was performed under standard four minute protocol. Radionuclide was injected one minute prior to ending the test. No electrocardiographic abormalities were present t o suggest ischemia. Nuclear imaging and interpretation are pending.
[2018-05-11] MEDS: amLODIPine 10 MG Tablet PO SCH (09:01)
[2018-05-11] MEDS: Metoprolol Tartrate 50 MG Tablet PO SCH (09:02)
--- NOTE | 2018-05-11 10:44 | P.PNIM ---
Subjective Interval history: Patient says he is feeling well. Reports chest pain resolved. Denies any shortness of breath. Feels like going home. Physical Exam Vital signs: Vital Signs 05/10/18 12:00 05/10/18 16:45 05/10/18 16:49 Temperature 98.8 F 97.4 F L Pulse Rate 65 57 L 66 Respiratory Rate 16 12 Blood Pressure 140/92 H 173/104 H Pulse Oximetry 95 05/10/18 17:53 05/10/18 18:00 05/10/18 19:00 Temperature Pulse Rate 58 L 71 Respiratory Rate 16 Blood Pressure 154/91 H Pulse Oximetry 05/10/18 19:17 05/10/18 20:00 05/10/18 21:00 Temperature 97.8 F Pulse Rate 69 64 62 Respiratory Rate 16 Blood Pressure 120/84 Pulse Oximetry 94 L 05/10/18 22:00 05/10/18 23:00 05/10/18 23:55 Temperature 98 F Pulse Rate 70 64 69 Respiratory Rate 16 Blood Pressure 131/88 Pulse Oximetry 94 L 05/11/18 03:00 05/11/18 04:00 05/11/18 05:00 Temperature Pulse Rate 69 60 66 Respiratory Rate Blood Pressure Pulse Oximetry 05/11/18 06:00 05/11/18 07:00 05/11/18 08:00 Temperature 97.6 F Pulse Rate 62 64 77 Respiratory Rate 18 Blood Pressure 146/92 H Pulse Oximetry 95 Intake & Output 05/10/18 05/11/18 05/11/18 18:59 06:59 18:59 Intake Total 2009 1000 / 1000 Output Total 450 / 450 Balance 1560 / 1560 1000 / 1000 Weight 97.8 kg Intake: IV 10 1000 / 1000 Heparin/NS PF Inj 1,500 ML @ 0 10 / 10 mls/hr .ROUTE .STK-MED ONE Rx#: [id number] NS Inj 1,000 ML @ 100 mls/hr IV 1000 / 1000 .CONT .Q10H [facility] Rx#:[id number] Oral 0 / 0 Anesthesia Amount 1999 Output: Urine 450 / 450 Narrative: GENERAL: Patient sitting up in bed. Appears comfortable. Walking around room. SKIN: Warm and dry. HEAD: Normocephalic. EYES: No scleral icterus. No injection or drainage. NECK: Supple, trachea midline. No JVD. CARDIOVASCULAR: Regular rate and rhythm without murmurs, gallops, or rubs. RESPIRATORY: Breath sounds equal bilaterally. No accessory muscle use. GASTROINTESTINAL: Abdomen soft, non-tender, nondistended. MUSCULOSKELETAL: No cyanosis, or edema. BACK: Nontender without obvious deformity. No CVA tenderness. Results - Labs CBC & Chem 7: 05/08/18 11:56 05/11/18 05:03 Laboratory Results - last 24 hr 05/11/18 05:03 Sodium 141 Potassium 4.2 Chloride 106 Carbon Dioxide 27.1 Anion Gap 8 BUN 12 Creatinine 1.07 Estimated GFR 87 L Random Glucose 80 Calcium 8.1 L Triglycerides 84 Cholesterol 127 LDL Cholesterol, Calc 71 HDL Cholesterol 39.6 L Cholesterol/HDL Ratio 3.20 Assessment and Plan - Plan //Chest pain. Resolved //Coronary artery disease Status post cardiac catheterization with 50% stenosis of proximal - mid left anterior descending artery and borderline left ventricular systolic function. -On Plavix, aspirin, statin, isosorbide. = Follow-up with finance mgr as outpatient. //Acute kidney injury. Creatinine 1.6 on admission. Resolved with IV fluids. Follow with primary care. Discussed Condition With: Patient, nurse.
--- NOTE | 2018-05-11 10:48 | P.DS ---
Date of admission: 05/08/18 17:48 Primary care physician: UNKNOWN Brief History from admission: This is a 52-year-old male that presents to ED with history of hypertension with complaint of left-sided chest and neck pain. States it has been essentially constant for the last few days. Nothing in particular seems to worsen. He then states that he has been dealing with this for probably 20 years. He is has an episode once every other month or so. When it occurs will last up to 2 weeks at a time. States he has had it checked several times most recently [place] about 4 5 months ago. States his heart was checked out but does not really know the specifics. I was able to speak with the and she was able to get some clarity. Apparently the patient was admitted in [place] at [facility] about 4 5 months ago for the same symptoms. She states that he had a stress test that was abnormal and states that her retail sales assistant told them that he probably would need at least one stent but need to do a cardiac catheterization to confirm. Patient now recalls this but states he became scared about the test and refused to have a heart catheterization. This is not the first time he had that discomfort since then but it did seem to be a little bit more intense. Denies nausea or diaphoresis with the symptoms but did get a little winded last night. Patient states that he would agree to a retail sales assistant if they told him that he needed to have the heart catheterization this time. Currently denying discomfort. History of hypertension. Denies hyperlipidemia, diabetes, and being diagnosed with coronary disease however he and his both state that he had an abnormal chemical stress test for 5 months ago in [place]. Denies family history of CAD. He is a non-smoker. DS: Medications - Discharge Medications Prescriptions: aspirin 81 mg PO DAILY 30 Days #30 tab clopidogrel [Plavix] 75 mg PO DAILY #30 tab isosorbide mononitrate 30 mg PO DAILY@0700 30 Days tab losartan 100 mg PO DAILY 30 Days #30 tab metoprolol tartrate 50 mg PO BID #60 tab pravastatin 40 mg PO HS 30 Days #30 tab DS: Summary Hospital Course: Patient presented with chest pain. Troponins negative. Chest x-ray negative. Patient underwent myocardial perfusion scan which shows stress-induced ischemia of the anterior myocardium. Cardiology consulted, patient underwent cardiac catheterization which shows 50% stenosis of proximalmid left anterior descending artery with borderline left ventricular systolic function. Patient was started on isosorbide, Plavix, aspirin, statin. He will need to follow-up with primary care and cardiology as outpatient. Patient conveys understanding For problem based summary from most recent progress note, please see below. //Chest pain. Resolved //Coronary artery disease Status post cardiac catheterization with 50% stenosis of proximal - mid left anterior descending artery and borderline left ventricular systolic function. -On Plavix, aspirin, statin, isosorbide. = Follow-up with retail sales assistant as outpatient. //Acute kidney injury. Creatinine 1.6 on admission. Resolved with IV fluids. Follow with primary care. - Time Spent with Patient Total time spent providing and/or coordinating discharge services: Greater than 30 minutes - Quality: VTE Deep Vein Thrombosis/Pulmonary Embolism Present on Admission: No Exam Vital signs: Vital Signs 05/10/18 12:00 05/10/18 16:45 05/10/18 16:49 Temperature 98.8 F 97.4 F L Pulse Rate 65 57 L 66 Respiratory Rate 16 12 Blood Pressure 140/92 H 173/104 H Pulse Oximetry 95 05/10/18 17:53 05/10/18 18:00 05/10/18 19:00 Temperature Pulse Rate 58 L 71 Respiratory Rate 16 Blood Pressure 154/91 H Pulse Oximetry 05/10/18 19:17 05/10/18 20:00 05/10/18 21:00 Temperature 97.8 F Pulse Rate 69 64 62 Respiratory Rate 16 Blood Pressure 120/84 Pulse Oximetry 94 L 05/10/18 22:00 05/10/18 23:00 05/10/18 23:55 Temperature 98 F Pulse Rate 70 64 69 Respiratory Rate 16 Blood Pressure 131/88 Pulse Oximetry 94 L 05/11/18 03:00 05/11/18 04:00 05/11/18 05:00 Temperature Pulse Rate 69 60 66 Respiratory Rate Blood Pressure Pulse Oximetry 05/11/18 06:00 05/11/18 07:00 05/11/18 08:00 Temperature 97.6 F Pulse Rate 62 64 77 Respiratory Rate 18 Blood Pressure 146/92 H Pulse Oximetry 95 Intake & Output 05/10/18 05/11/18 05/11/18 18:59 06:59 18:59 Intake Total 2009 1000 / 1000 Output Total 450 / 450 Balance 1560 / 1560 1000 / 1000 Weight 97.8 kg Intake: IV 10 1000 / 1000 Heparin/NS PF Inj 1,500 ML @ 0 10 / 10 mls/hr .ROUTE .STK-MED ONE Rx#: [id number] NS Inj 1,000 ML @ 100 mls/hr IV 1000 / 1000 .CONT .Q10H [facility] Rx#:[id number] Oral 0 / 0 Anesthesia Amount 1999 / 1999 Output: Urine 450 / 450 Results Procedures completed during hospitalization: Cardiac catheterization. Please see report Labs on day of discharge: Labs from last 24 hours 05/11/18 05:03 Sodium 141 Potassium 4.2 Chloride 106 Carbon Dioxide 27.1 Anion Gap 8 BUN 12 Creatinine 1.07 Estimated GFR 87 L Random Glucose 80 Calcium 8.1 L Triglycerides 84 Cholesterol 127 LDL Cholesterol, Calc 71 HDL Cholesterol 39.6 L Cholesterol/HDL Ratio 3.20 - Impressions ITS Impressions Chest X-Ray 05/08/18 11:36 CONCLUSION: Negative examination. Chest CTA 05/08/18 12:09 CONCLUSION: 1. No pulmonary embolus. 2. Mild atelectasis of. No pneumonia, effusion or pneumothorax. 3. Coronary artery calcification. Myocardial Perfusion Scan Nuc Med 05/09/18 12:40 CONCLUSION: 1. Stress-induced ischemia anterior myocardium as above. Discharge Plan - Discharge Disposition Patient Disposition: 01 Discharge Home - Discharge Condition Condition: Good - Discharge Order Discharge Orders: Discharge Order (Routine); Ordered 05/11/18 Ordered By: Alexi Centeno - Discharge Details Anticipated Discharge Date: 05/11/18 - Physicians Team Primary Care Provider: UNKNOWN, Attending Provider: Alexi Centeno Other Providers: Gary Joiner MD ; Alexi Centeno MD
--- NOTE | 2018-05-11 15:28 | P.PNCA ---
Subjective Interval history: Late Entry Patient denies any pressure, palpitations, dizziness, edema or SOB. Patient does complain of right sided neck pain and right shoulder pain. Medications and Allergies Allergies Allergy/AdvReac Type Severity Reaction Status Date / Time benazepril Allergy Severe Rash Verified 05/08/18 11:21 captopril Allergy Severe Rash Verified 05/08/18 11:21 enalaprilat Allergy Severe Rash Verified 05/08/18 11:21 fosinopril Allergy Severe Rash Verified 05/08/18 11:21 lisinopril Allergy Severe Rash Verified 05/08/18 11:21 quinapril Allergy Severe Rash Verified 05/08/18 11:21 Home Medications Medication Instructions Recorded Confirmed Type amlodipine 10 mg PO DAILY 05/08/18 05/08/18 History hydrocodone-acetaminophen 1 tab PO Q6H PRN 05/08/18 05/08/18 History Physical Exam Vital signs: Vital Signs 05/10/18 16:45 05/10/18 16:49 05/10/18 17:53 Temperature 97.4 F L Pulse Rate 57 L 66 Respiratory Rate 12 16 Blood Pressure 173/104 H 154/91 H Pulse Oximetry 05/10/18 18:00 05/10/18 19:00 05/10/18 19:17 Temperature 97.8 F Pulse Rate 58 L 71 69 Respiratory Rate 16 Blood Pressure 120/84 Pulse Oximetry 94 L 05/10/18 20:00 05/10/18 21:00 05/10/18 22:00 Temperature Pulse Rate 64 62 70 Respiratory Rate Blood Pressure Pulse Oximetry 05/10/18 23:00 05/10/18 23:55 05/11/18 03:00 Temperature 98 F Pulse Rate 64 69 69 Respiratory Rate 16 Blood Pressure 131/88 Pulse Oximetry 94 L 05/11/18 04:00 05/11/18 05:00 05/11/18 06:00 Temperature Pulse Rate 60 66 62 Respiratory Rate Blood Pressure Pulse Oximetry 05/11/18 07:00 05/11/18 08:00 Temperature 97.6 F Pulse Rate 64 77 Respiratory Rate 18 Blood Pressure 146/92 H Pulse Oximetry 95 Intake & Output 05/10/18 05/11/18 05/11/18 18:59 06:59 18:59 Intake Total 2009 1000 / 1000 Output Total 450 / 450 Balance 1560 / 1560 1000 / 1000 Weight 97.8 kg Intake: IV 1000 / 1000 Heparin/NS PF Inj 1,500 ML @ 0 10 / 10 mls/hr .ROUTE .STK-MED ONE Rx#: [id number] NS Inj 1,000 ML @ 100 mls/hr IV 1000 / 1000 .CONT .Q10H [facility] Rx#:[id number] Oral 0 / 0 Anesthesia Amount 1999 Output: Urine 450 / 450 - Constitutional no acute distress - Routine HEENT Exam Head: Present: normocephalic Eye: Present: PERRL ENT: Present: mucous membranes moist - Routine Neck Exam Present: full ROM - Routine Respiratory Exam Present: CTA bilaterally - Routine Cardiovascular Exam Present: S1, S2. Absent: murmur, gallop, rubs - Routine Abdominal Exam Present: normoactive bowel sounds - Routine Exam Groin: Absent: swelling, erythema Comments: Cath site D&I without signs of bleeding or hematoma. - Routine Extremities Exam Present: full ROM, pulses intact, normal capillary refill. Absent: cyanosis, clubbing, edema - Routine Skin Exam Present: intact - Routine Neurological Exam Present: oriented X3 - Detailed Neurological Exam: Coma Scale Eye Opening: Spontaneous Verbal Response: Oriented Motor Response: Obey commands Asha Coma Scale Total: 15 - Routine Psychiatric Exam Present: normal affect Results 05/08/18 11:56 05/11/18 05:03 Lipids 05/11/18 Range/Units 05:03 Triglycerides 84 (42-150) mg/dL Cholesterol 127 (120-200) mg/dL HDL Cholesterol 39.6 L (40.0-60.0) mg/dL Cholesterol/HDL Ratio 3.20 Ratio Comprehensive Metabolic Panel 05/11/18 Range/Units 05:03 Sodium 141 (136-145) meq/L Potassium 4.2 (3.5-5.1) meq/L Chloride 106 (98-107) meq/L Carbon Dioxide 27.1 (21.0-32.0) meq/L BUN 12 (7-18) mg/dL Creatinine 1.07 (0.60-1.30) mg/dL Calcium 8.1 L (8.5-10.1) mg/dL Intake and Output 05/11/18 05/11/18 05/11/18 06:59 14:59 22:59 Intake Total 1000 / 999 Balance 1000 / 1000 Intake: IV 1000 / 1000 NS Inj 1,000 ML @ 100 mls/hr IV 1000 / 1000 .CONT .Q10H [facility] Rx#:[id number] Other: Weight 97.8 kg - Imaging and Cardiology Imaging: Impressions Myocardial Perfusion Scan Nuc Med 05/09/18 12:40 CONCLUSION: 1. Stress-induced ischemia anterior myocardium as above. Assessment and Plan - Assessment (1) Angina at rest Code(s): I20.8 - Other forms of angina pectoris Status: Acute (2) Chest pain Code(s): R07.9 - Chest pain, unspecified Status: Acute (3) Hypertension Code(s): I10 - Essential (primary) hypertension Status: Acute (4) CKD (chronic kidney disease) Code(s): N18.9 - Chronic kidney disease, unspecified Status: Acute (5) CAD (coronary artery disease) Code(s): I25.10 - Atherosclerotic heart disease of [place] coronary artery without angina pectoris Status: Acute - Plan Cardiac catheterization was done yesterday which showed borderline normal left ventricular systolic function and moderate CAD with 50% stenosis of proximal - mid LAD. Patient is having atypical chest pain with no signs of ACS. Continue aggressive cardiac risk factors modification. Instructed patient on the importance of proper cardiac diet and exercise. Patient cleared for discharge from a cardiology standpoint and instructed to follow up with his physician in [place]. The patient was seen and evaluated by Dr. Joiner who participated in care, management and decision making. - Attending Attestation Patient seen and examined. I reviewed and agree with the evaluation and presented. Cath with moderate LAD disease. Renal fx stable. Continue aggressive risk factor modification. DC home.
== END 2018-05-11 10:10 | disposition home or self-care (01) ==
LOC: NEPE 10:19 → NEDA 10:19 → NEPGCP 19:49 → HCIS 05-10 14:24 → HCPC 05-10 16:57
PROVIDERS: ADMIT Internal Medicine; ATTEND Internal Medicine
DX: N17.9 Acute kidney failure, unspecified; M54.2 Cervicalgia; Z88.8 Allergy status to other drugs, medicaments and biological substances; Z79.899 Other long term (current) drug therapy; I25.119 Atherosclerotic heart disease of native coronary artery with unspecified angina pectoris; I12.9 Hypertensive chronic kidney disease with stage 1 through stage 4 chronic kidney disease, or unspecified chronic kidney disease; N18.9 Chronic kidney disease, unspecified; J98.11 Atelectasis